=== PATIENT | male | born 1970 | race African-American/Black ===

== ENCOUNTER 2017-03-21 18:02 | Inpatient (IN) | payer SELFPAY ==
[~2017-03-21] VITALS: Ht 193 cm; Wt 110.0 kg
[~2017-03-21 18:02] MED LIST: CIPRO.3%O LEFT EYE; IBUP800T23 PO; ROBA750T PO
[2017-03-21 18:03] VITALS: BP 121/76; PULSE 102; RESP 20; TEMP 99.2; O2SAT 98
[2017-03-21] MEDS ORDERED: ONDANSETRON HCL 4 MG/2 ML VIAL IV ONE (21:00)
[2017-03-21] MEDS ORDERED: SODIUM CHLOR 0.9% 1000 ML INJ 1,000 ML IV ONE (21:00)
--- NOTE | 2017-03-21 21:52 | PD ---
HPI Chief Complaint: GI Complaint Time Seen by Provider: 20:45 Travel History International Travel<30 days: No Contact w/Intl Traveler<30days: No Traveled to known affect area: No History of Present Illness HPI So 46-year-old male presents to the emergency department complaining of vomiting and cramping all day. States he didn't eat this morning, was drinking soda, was doing his normal job which is hence work outside in the 90 heat. He states he started getting sick and was having vomiting and cramping. Try to keep some fluids down and was able to drink some orange juice. He is not really had trouble with the exhaustion or cramps before. He had a bowel movement today which she describes as generally normal. No blood in his stool. No fevers. He is feeling a little bit better now. Patient states she also has chronic pain in his posterior right shoulder from previous injury a month or so ago. History Past Medical History Medical History: Denies Significant Hx Social History Alcohol Use: No Tobacco Use: No Allergies-Medications (Allergen,Severity, Reaction): Coded Allergies: No Known Allergies (Verified , 07/18/16) Reported Meds & Prescriptions Reported Meds & Active Scripts Active Robaxin (Methocarbamol) 750 Mg Tab 750 Mg PO TID PRN Ibuprofen 800 Mg Tab 800 Mg PO TID PRN Review of Systems Except as stated in HPI: all other systems reviewed are Neg Physical Exam Narrative GENERAL: Well-appearing 46 Ant, no acute distress. SKIN: Focused skin assessment warm/dry. HEAD: Atraumatic. Normocephalic. EYES: Pupils equal and round. No scleral icterus. No injection or drainage. ENT: No nasal bleeding or discharge. Mucous membranes pink and moist. NECK: Trachea midline. No JVD. CARDIOVASCULAR: Regular rate and rhythm. No murmur appreciated. RESPIRATORY: No accessory muscle use. Clear to auscultation. Breath sounds equal bilaterally. GASTROINTESTINAL: Abdomen soft, non-tender, nondistended. Hepatic and splenic margins not palpable. MUSCULOSKELETAL: No obvious deformities. Some tenderness over the posterior rotator cuff. He has pain with external rotation against resistance as well as abduction against resistance. No deformity or limitation of range of motion. NEUROLOGICAL: Awake and alert. No obvious cranial nerve deficits. Motor grossly within normal limits. Normal speech. PSYCHIATRIC: Appropriate mood and affect; insight and judgment normal. Data Data Last Documented VS Vital Signs Date Time Temp Pulse Resp B/P Pulse Ox O2 Delivery O2 Flow Rate FiO2 03/21/17 18:03 99.2 102 20 121/76 98 Orders Basic Metabolic Panel (Bmp) (03/21/17 20:51) Creatine Kinase (Cpk) (03/21/17 20:51) Iv Access Insert/Monitor (03/21/17 20:51) Sodium Chlor 0.9% 1000 Ml Inj (Ns 1000 M (03/21/17 21:00) Ondansetron Inj (Zofran Inj) (03/21/17 21:00) CKMB (03/21/17 21:25) CKMB% (03/21/17 21:25) Complete Blood Count With Diff (03/21/17 23:12) Labs Laboratory Tests Test 03/21/17 21:25 Sodium Level 135 MEQ/L Potassium Level 5.7 MEQ/L Chloride Level 101 MEQ/L Carbon Dioxide Level 26.1 MEQ/L Anion Gap 8 MEQ/L Blood Urea Nitrogen 26 MG/DL Creatinine 3.01 MG/DL Estimat Glomerular Filtration 27 ML/MIN Rate Random Glucose 94 MG/DL Calcium Level 10.3 MG/DL Total Creatine Kinase 440 U/L Creatine Kinase MB 1.8 NG/ML Creatine Kinase MB % 0.4 % MDM Medical Decision Making Medical Screen Exam Complete: Yes Emergency Medical Condition: Yes Interpretation(s) CBC remarkable for mildly elevated potassium in the setting of slight hemolysis. Total CK is 440. Differential Diagnosis Heat cramps, dehydration, electrolyte abnormalities, other Narrative Course Medical decision making Is a 46-year-old presents emergent from chronic right shoulder pain in the posterior rotator cuff suggestive of probably a muscle strain, possible rotator cuff tear. His acute complaint is nausea vomiting and cramping in the setting of working outside and he did not eating. He likely had some dehydration and heat cramps. We'll check chemistries and CPK. IV fluid hydration. FINAL: Patient with elevated creatinine of 3. This seems to be acute kidney injury. No recent labs. He looks overall well. Potassium is a little bit elevated. He has no primary care doctor for outpatient follow-up. We'll recommend observation overnight for acute kidney injury in the setting of dehydration, heat exhaustion, vomiting. Diagnosis Primary Impression: Acute kidney injury Additional Impressions: Heat cramps Dehydration Admitting Information Admitting Physician Requests: Observation Condition: Stable Viel,Robson C. MD Mar 21, 2017 21:52 Disposition: 01 DISCHARGE HOME Condition: Robson Vasquez MD Mar 21, 2017 21:52
[2017-03-21 22:17] LABS: BICARBONATE 26.1 MEQ/L (21.0-32.0)
[2017-03-21 22:18] LABS: POTASSIUM 5.7 MEQ/L (3.5-5.1)
[2017-03-21 22:36] LABS: CKMB 1.8 NG/ML (0.5-3.6)
[2017-03-21] MEDS ORDERED: SODIUM CHLORIDE 0.9% FLUSH 10 ML FLUSH IV FLUSH PRN (23:15)
[2017-03-21] MEDS ORDERED: NALOXONE HCL 0.4 MG/ML AMP IV PRN (23:15)
[2017-03-22] MEDS: SODIUM CHLOR 0.9% 1000 ML INJ 1,000 ML IV SCH ×2 (00:28→11:41)
[2017-03-22 00:33] VITALS: BP 164/100; PULSE 86; TEMP 98.5; O2SAT 98
[2017-03-22 00:36] VITALS: PULSE 88
--- NOTE | 2017-03-22 05:53 | HHI.HP ---
[facility] No Primary Care Physician Admission Diagnosis acute kidney injury, dehydration, heat exhaustion Diagnoses: Chief Complaint: vomiting and abdominal cramping Travel History International Travel<30 Days: No Contact w/Intl Traveler <30 Da: No Traveled to Known Affected Are: No History of Present Illness 46 y/o male with a no medical history presented to the ED with complaints of vomiting and dizziness. 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 His boss gave he something to eat but he was unable to keep it down. He denies any chest pain, sob, fever or chills. He also complains of right shoulder tenderness and right groin pain from lifting heavy objects. He states he feel much better since getting IV fluids. Review of Systems Constitutional: COMPLAINS OF: Dizziness, DENIES: Fever, Chills Respiratory: DENIES: Cough, Shortness of breath Cardiovascular: DENIES: Chest pain, Lower Extremity Edema Gastrointestinal: COMPLAINS OF: Abdominal pain, Vomiting, DENIES: Diarrhea, Nausea Genitourinary: DENIES: Hematuria, Dysuria Musculoskeletal: COMPLAINS OF: Muscle aches, DENIES: Back pain, Neck pain Integumentary: DENIES: Rash Hematologic/lymphatic: DENIES: Lymphadenopathy Immunologic/allergic: DENIES: Urticaria Neurologic: DENIES: Headache Past Family Social History Past Medical History Patient denies any medical history Past Surgical History Patient denies any surgical history Reported Medications Reported Meds & Active Scripts Active Robaxin (Methocarbamol) 750 Mg Tab 750 Mg PO TID PRN Ibuprofen 800 Mg Tab 800 Mg PO TID PRN Allergies: Coded Allergies: No Known Allergies (Verified , 07/18/16) Active Ordered Medications Current Medications Medications (Trade) Dose Ordered Sig/Jose Francisco Route Start Time Stop Time Status Last Admin (NS 1000 ml Inj) 1,000 ml @ 100 mls/hr Q10H IV 03/21/17 23:13 03/22/17 00:28 (NS Flush) 2 ml UNSCH PRN IV FLUSH 03/21/17 23:15 (NS Flush) 2 ml BID IV FLUSH 03/22/17 09:00 (Narcan Inj) 0.4 mg UNSCH PRN IV 03/21/17 23:15 (Pneumovax-23 Inj) 25 mcg ONCE ONCE IM 03/23/17 10:00 03/23/17 10:01 Family History Mom: HTN Social History Tobacco use: Denies Alcohol use: Denies Illicit drug use: Denies Physical Exam Vital Signs Vital Signs Date Time Temp Pulse Resp B/P Pulse Ox O2 Delivery O2 Flow Rate FiO2 03/22/17 00:36 88 03/22/17 00:33 98.5 86 164/100 98 03/21/17 18:03 99.2 102 20 121/76 98 Physical Exam GENERAL: This is a well-nourished, well-developed patient, in no apparent distress. SKIN: No rashes, ecchymoses or lesions. Cool and dry. HEAD: Atraumatic. Normocephalic. EYES: Pupils equal round and reactive. ENT: Nose without bleeding, purulent drainage or septal hematoma. NECK: Trachea midline. No JVD or lymphadenopathy. CARDIOVASCULAR: Regular rate and rhythm without murmurs, gallops, or rubs. RESPIRATORY: Clear to auscultation. Breath sounds equal bilaterally. No wheezes , rales, or rhonchi. GASTROINTESTINAL: Abdomen soft, non-tender, nondistended. MUSCULOSKELETAL: Extremities without clubbing, cyanosis, or edema. No joint tenderness, effusion, or edema noted. No calf tenderness. Muscle aches NEUROLOGICAL: Awake and alert. Motor and sensory grossly within normal limits. Five out of 5 muscle strength in all muscle groups. Normal speech. Laboratory Laboratory Tests Test 03/21/17 21:25 Sodium Level 135 Potassium Level 5.7 Chloride Level 101 Carbon Dioxide Level 26.1 Anion Gap 8 Blood Urea Nitrogen 26 Creatinine 3.01 Estimat Glomerular Filtration 27 Rate Random Glucose 94 Calcium Level 10.3 Total Creatine Kinase 440 Creatine Kinase MB 1.8 Creatine Kinase MB % 0.4 Result Diagram: 03/21/172124 Assessment and Plan Problem List: (1) Right shoulder pain ICD Code: M25.511 Status: Acute (2) Rhabdomyolysis ICD Code: M62.82 Status: Acute (3) Hyperkalemia ICD Code: E87.5 Status: Acute (4) Acute kidney injury ICD Code: N17.9 Status: Acute Assessment and Plan 46 y/o male with a no medical history presented to the ED with complaints of vomiting with abdominal cramping all day. Acute kidney injury, creatine 3.0, unknown baseline, suspected dehydration -IVF for hydration -BMP in AM Mild Rhabdomyolysis, due to dehydration CPK 440 -Cont IVF -Repeat CPK in AM Hyperkalemia, potassium 5.7 -Repeat in AM -Patient may need Kayexalate if no decrease is seen on labs Muscle strain, rt shoulder and rt groin, no hernia noted -Flexeril PO PRN -Educated on proper lifting techniques DVT prophylaxis: SCDs The exam, history, and the medical decision-making described in the above note were completed with the assistance of the mid-level provider. I reviewed and agree with the findings presented. I attest that I had a [id number] encounter with the patient on the same day, and personally performed and documented my assessment and findings in the medical record. Patient seen and examined. He reports he is feeling well. He denies any pain or cramps. Feels back to normal. Wants to go home. GENERAL: This is a well-nourished, well-developed patient, in no apparent distress. CARDIOVASCULAR: Normal rate and regular rhythm without murmurs, gallops, or rubs. RESPIRATORY: Good respiratory efforts. Breath sounds equal and clear to auscultation bilaterally. GASTROINTESTINAL: Abdomen soft, non-tender, non-distended. Normal active bowel sounds MUSCULOSKELETAL: Extremities without cyanosis, or edema. NEURO: Alert & Oriented x4 to person, place, time, situation. Moves all ext x4 PSYCH: Appropriate mood and affect. 46-year-old male admitted with acute kidney injury and rhabdomyolysis secondary to dehydration and heat exhaustion. Patient's critically improved with IV fluid. His renal function improved and expected to continue to improve with hydration. He is advised to drink plenty of water with the heat. He is advised to follow up outpatient with PCP for periodic check of his kidney functions. Patient is stable for discharge Discharge home in good condition Diet: Regular as tolerated Activity: Regular as tolerated Follow-up with: PCP Meds: No new medications. Code Status Full Discussed Condition With Patient Physician Certification 2 Midnight Certification Type: Admission for Inpatient Services Order for Inpatient Services The services are ordered in accordance with Medicare regulations or non- Medicare payer requirements, as applicable. In the case of services not specified as inpatient-only, they are appropriately provided as inpatient services in accordance with the 2-midnight benchmark. Estimated LOS (days): 2 days is the estimated time the patient will need to remain in the hospital, assuming treatment plan goals are met and no additional complications. Post-Hospital Plan: Home Marni Molina Mar 22, 2017 05:53 Jose G Huitron MD Mar 22, 2017 14:12
[2017-03-22] MEDS ORDERED: CYCLOBENZAPRINE HCL 10 MG TAB PO PRN (06:15)
[2017-03-22 07:16] VITALS: BP 130/76; PULSE 79; RESP 17; TEMP 98.3; O2SAT 98
[2017-03-22 07:54] LABS: AUTOMATED NEUTROPHIL # 5.5 TH/MM3 (1.8-7.7); BASOPHIL % 0.3 % (0.0-2.0); EOSINOPHIL # 0.1 TH/MM3 (0-0.4); HEMATOCRIT 39.6 % (39.0-51.0); HEMO FLAGS DIFF FINAL; LYMPH % 31.7 % (9.0-44.0); LYMPHOCYTE # 3.2 TH/MM3 (1.0-4.8); MEAN CELL VOLUME 91.8 FL (80.0-100.0); MEAN CORPUSCULAR HEMOGLOBIN 32.2 PG (27.0-34.0); MONO % 11.9 % (0.0-8.0); NEUT % 55.1 % (16.0-70.0); PLATELET COUNT 169 TH/MM3 (150-450); RED BLOOD COUNT 4.31 MIL/MM3 (4.50-5.90); RED CELL DISTRIBUTION WIDTH 12.9 % (11.6-17.2)
[2017-03-22 08:21] LABS: BICARBONATE 24.8 MEQ/L (21.0-32.0); POTASSIUM 3.7 MEQ/L (3.5-5.1)
[2017-03-22 08:44] LABS: CKMB 3.2 NG/ML (0.5-3.6)
[2017-03-22] MEDS ORDERED: SODIUM CHLORIDE 0.9% FLUSH 10 ML FLUSH IV FLUSH SCH (09:00)
--- NOTE | 2017-03-22 10:14 | PD.PN.STU ---
Subjective Remarks Patient is a 46 year old male with no prior medical history who presented to the ED 03/21/17 for nausea, vomiting, dizziness, cramping, and weakness. 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 Heat indexes exceeded 100F The patient states that he did not eat breakfast that morning and had only drank soda that day. His symptoms were no relieved with rest or active cooling, prompting his presentation. Initial labs at 9:30pm showed a depleted volume status with elevated CK, hyperkalemia, and elevated creatinine. After fluid administration, hyperkalemia has resolved with improvement of creatinine and slight rise in CK (7:30am 03/22/17. Patient states he is feeling much better this morning and would like to go home. He admits to needing to monitor his diet and drink more water while working. Objective Vitals Vital Signs Date Time Temp Pulse Resp B/P Pulse Ox O2 Delivery O2 Flow Rate FiO2 03/22/17 07:16 98.3 79 17 130/76 98 03/22/17 00:36 88 03/22/17 00:33 98.5 86 164/100 98 03/21/17 18:03 99.2 102 20 121/76 98 I/O 03/21/17 03/21/17 03/21/17 03/22/17 03/22/17 03/22/17 07:00 15:00 23:00 07:00 15:00 23:00 Intake Total 300 ml Balance 300 ml Intake Oral 300 ml Result Diagram: 03/22/17 0730 03/22/17 0730 Other Results Laboratory Tests Test 03/21/17 03/22/17 21:25 07:30 Sodium Level 135 MEQ/L 138 MEQ/L (136-145) (136-145) Potassium Level 5.7 MEQ/L 3.7 MEQ/L (3.5-5.1) (3.5-5.1) Chloride Level 101 MEQ/L 104 MEQ/L (98-107) (98-107) Carbon Dioxide Level 26.1 MEQ/L 24.8 MEQ/L (21.0-32.0) (21.0-32.0) Anion Gap 8 MEQ/L (5-15) 9 MEQ/L (5-15) Blood Urea Nitrogen 26 MG/DL (7-18) 23 MG/DL (7-18) Creatinine 3.01 MG/DL 2.05 MG/DL (0.60-1.30) (0.60-1.30) Estimat Glomerular Filtration 27 ML/MIN (>89) 43 ML/MIN (>89) Rate Random Glucose 94 MG/DL 96 MG/DL (74-106) (74-106) Calcium Level 10.3 MG/DL 8.8 MG/DL (8.5-10.1) (8.5-10.1) Total Creatine Kinase 440 U/L 514 U/L (39-308) (39-308) Creatine Kinase MB 1.8 NG/ML 3.2 NG/ML (0.5-3.6) (0.5-3.6) Creatine Kinase MB % 0.4 % (0.0-4.0) 0.6 % (0.0-4.0) White Blood Count 10.0 TH/MM3 (4.0-11.0) Red Blood Count 4.31 MIL/MM3 (4.50-5.90) Hemoglobin 13.9 GM/DL (13.0-17.0) Hematocrit 39.6 % (39.0-51.0) Mean Corpuscular Volume 91.8 FL (80.0-100.0) Mean Corpuscular Hemoglobin 32.2 PG (27.0-34.0) Mean Corpuscular Hemoglobin 35.0 % Concent (32.0-36.0) Red Cell Distribution Width 12.9 % (11.6-17.2) Platelet Count 169 TH/MM3 (150-450) Mean Platelet Volume 9.3 FL (7.0-11.0) Neutrophils (%) (Auto) 55.1 % (16.0-70.0) Lymphocytes (%) (Auto) 31.7 % (9.0-44.0) Monocytes (%) (Auto) 11.9 % (0.0-8.0) Eosinophils (%) (Auto) 1.0 % (0.0-4.0) Basophils (%) (Auto) 0.3 % (0.0-2.0) Neutrophils # (Auto) 5.5 TH/MM3 (1.8-7.7) Lymphocytes # (Auto) 3.2 TH/MM3 (1.0-4.8) Monocytes # (Auto) 1.2 TH/MM3 (0-0.9) Eosinophils # (Auto) 0.1 TH/MM3 (0-0.4) Basophils # (Auto) 0.0 TH/MM3 (0-0.2) CBC Comment DIFF FINAL Differential Comment Objective Remarks GENERAL: This is a well-nourished, well-developed patient, in no apparent distress. SKIN: No rashes, ecchymoses or lesions. Cool and dry. HEAD: Atraumatic. Normocephalic. No temporal or scalp tenderness. EYES: Pupils equal round and reactive. Extraocular motions intact. No scleral icterus. No injection or drainage. ENT: Nose without bleeding, purulent drainage or septal hematoma. Throat without erythema, tonsillar hypertrophy or exudate. Uvula midline. Airway patent. NECK: Trachea midline. No JVD or lymphadenopathy. Supple, nontender, no meningeal signs. CARDIOVASCULAR: Regular rate and rhythm without murmurs, gallops, or rubs. RESPIRATORY: Clear to auscultation. Breath sounds equal bilaterally. No wheezes , rales, or rhonchi. GASTROINTESTINAL: Abdomen soft, non-tender, nondistended. No hepato-splenomegaly , or palpable masses. No guarding. MUSCULOSKELETAL: Extremities without clubbing, cyanosis, or edema. No joint tenderness, effusion, or edema noted. NEUROLOGICAL: Awake and alert. Motor and sensory grossly within normal limits. Five out of 5 muscle strength in all muscle groups. Normal speech. 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 1) Heat Exhaustion Dehydration indicated on electrolyte panel, improvement in symptoms with iv NS administration Patient educated on proper nutrition and fluid intake habits while performing physical activity, particularly in heat 2) Possible CKD Creatinine has improved with fluid resuscitation, but recommendation for establishment of primary care for evaluation of baseline kidney disease recommended 3) Elevated CK Likely secondary to heat exhaustion Patient is very muscular and states his work requires intense physical labor Discharge Planning Patient educated on proper hydration and nutrition. Patient is being discharged to home and has been told to return to ED if symptoms recur. Anuradha Williamson M3 Mar 22, 2017 10:14
[2017-03-22 11:34] VITALS: BP 143/71; PULSE 78; RESP 15; TEMP 98; O2SAT 99
[2017-03-22 13:49] VITALS: PULSE 93
--- NOTE | 2017-03-22 14:09 | HHI.DCPOC ---
Discharge Care Plan Diagnosis: (1) Rhabdomyolysis (2) Acute kidney failure (3) Heat cramps Goals to Promote Your Health * To prevent worsening of your condition and complications * To maintain your health at the optimal level Directions to Meet Your Goals Take your medications as prescribed Follow your dietary instruction Follow activity as directed Keep your appointments as scheduled Take your immunizations and boosters as scheduled If your symptoms worsen call your PCP, if no PCP go to Urgent Care Center or Emergency Room Smoking is Dangerous to Your Health. Avoid second hand smoke Call the 24-hour hour crisis hotline for domestic abuse at Jose G Huitron MD Mar 22, 2017 14:09
[2017-03-23] MEDS ORDERED: PNEUMOCOCCAL POLYVALENT INJ 25 MCG/0.5 ML SYR IM ONE (10:00)
== END 2017-03-22 15:03 | disposition home or self-care (01) | DRG 923 ==
LOC: NEPD 18:02 → NEDA 23:13 → UNDOADMIN 23:13 → NEPHCDU 03-22 → OBSVTOIN 03-22 00:42
PROVIDERS: ADMIT Family Medicine; ATTEND Family Medicine
DX: T67.5XXA Heat exhaustion, unspecified, initial encounter (principal); N17.9 Acute kidney failure, unspecified; M62.82 Rhabdomyolysis; E87.5 Hyperkalemia; E86.0 Dehydration; S46.911A Strain of unspecified muscle, fascia and tendon at shoulder and upper arm level, right arm, initial encounter; X30.XXXA Exposure to excessive natural heat, initial encounter; Y93.89 Activity, other specified; Y92.89 Other specified places as the place of occurrence of the external cause; Y99.0 Civilian activity done for income or pay
CPT/HCPCS: 80048; 82550; 82552; 85025; 96361; 96374; G0378; J2405; J7030

== ENCOUNTER 2018-01-02 19:13 | Emergency (ER) | payer SELFPAY ==
[2018-01-02 20:30] VITALS: BP 179/100; PULSE 96; RESP 18; TEMP 99.6; O2SAT 97
== END 2018-01-02 22:41 | disposition left against medical advice (07) ==
LOC: NED 19:13
DX: R51 Headache (principal)
CPT/HCPCS: 99281